=== PATIENT | female | born 1995 | race Two or more races ===

== ENCOUNTER 2025-07-18 05:31 | Emergency (ER) | payer MEDICAID, OTHER ==
[~2025-07-18] VITALS: Ht 175.3 cm; Wt 59.0 kg
[2025-07-18] MEDS ORDERED: BENZONATATE 100 MG CAPSULE PO ONE (06:36)
[2025-07-18] MEDS ORDERED: PSEUDOEPHEDRINE HCL 30 MG TABLET ONE (06:36)
[2025-07-18] MEDS: BENZONATATE 100 MG CAPSULE PO PRN (06:43)
[2025-07-18] MEDS: PSEUDOEPHEDRINE HCL 30 MG TABLET PO ONE (06:43)
[2025-07-18 06:55] VITALS: BP 128/76; TEMP 98.5; O2SAT 98
[2025-07-18] MEDS ORDERED: BENZ-13 PO (08:00)
[2025-07-18] MEDS ORDERED: PSEU30CA2 PO (08:00)
== END 2025-07-18 08:22 | disposition home or self-care (01) ==
LOC: ER 05:55
DX: B34.9 Viral infection, unspecified (principal)
CPT/HCPCS: 71045-TC